=== PATIENT | male | born 1950 | race Caucasian/White ===

== ENCOUNTER → 2017-11-29 | Outpatient (CLI) | payer MEDICARE, OTHER ==
[~2017-11-29] MED LIST: CLEOCIN300 MG PO; Catapres PO; Colace PO; Dulcolax PR; Januvia PO; KEFLEX500 MG PO; Lovenox SC; MOTRIN600 MG PO; Mag-Ox PO; Milk Of Magnesia,MOM PO; Miralax, Glycolax PO; Norvasc PO; TYLENOL REGULA325 MG PO; ULTRAM50 MG PO; Vicodin,Norco 5/325 PO; Zestril,Prinivil PO; Zocor PO
== END | disposition home or self-care (01) ==
LOC: CDC 09:37
DX: Z01.810 Encounter for preprocedural cardiovascular examination (principal); M79.9 Soft tissue disorder, unspecified; I45.4 Nonspecific intraventricular block; R94.31 Abnormal electrocardiogram [ECG] [EKG]
CPT/HCPCS: 93000

== ENCOUNTER 2017-12-10 05:32 | Day surgery (SDC) | payer OTHER ==
[~2017-12-10] VITALS: Ht 182.9 cm; Wt 115.7 kg
[~2017-12-10 05:32] MED LIST changes: +AMLODIPINE BESYL5 MG PO; +BENTYL10 MG PO; +CINNAMON500 MG PO; +DIOVAN160 MG PO; +GLUCOPHAGE1000 MG PO; +K-DUR10 MEQ PO; +LEVEMIR FL100 UNIT/1 SC; +OMEPRAZOLE40 M1 PO; +PRAVACHOL40 MG PO; +TRADJENTA5 MG PO; +VITAMIN C1000 MG PO; +VITAMIN D2000 UNIT PO; +ZYRTEC10 M3 PO
[2017-12-10 06:39] VITALS: BP 145/70
[2017-12-10 09:10] VITALS: BP 155/77
[2017-12-10 10:02] VITALS: BP 173/77
== END 2017-12-10 10:09 | disposition home or self-care (01) ==
LOC: SDC 05:32
PROVIDERS: Surgery
PROC: 0JB70ZZ Excision of Back Subcutaneous Tissue and Fascia, Open Approach (ICD-10-PCS; principal; 2017-12-10)
DX: D17.1 Benign lipomatous neoplasm of skin and subcutaneous tissue of trunk (principal); Z87.891 Personal history of nicotine dependence; E66.9 Obesity, unspecified; Z68.34 Body mass index [BMI] 34.0-34.9, adult; I10 Essential (primary) hypertension; K21.9 Gastro-esophageal reflux disease without esophagitis; E11.9 Type 2 diabetes mellitus without complications; Z79.4 Long term (current) use of insulin; Z90.49 Acquired absence of other specified parts of digestive tract; Z88.5 Allergy status to narcotic agent
CPT/HCPCS: 82948; 88304; J0330; J0690; J2250; J2405; J3010; S0020